=== PATIENT | female | born 1995 | race Caucasian/White ===

== ENCOUNTER 2018-06-16 18:35 | Emergency (ER) | payer OTHER ==
[2018-06-16 18:45] VITALS: BP 135/89
--- NOTE | 2018-06-16 18:54 | EDPHY ---
H & P Stated Complaint: 'Rolled' left ankle last night. Time Seen by Provider: 06/16/18 18:54 HPI/ROS: HPI CHIEF COMPLAINT: Left ankle swelling and pain. HISTORY OF PRESENT ILLNESS: 23-year-old female otherwise healthy no significant medical history presents emergency room left lateral ankle pain and swelling. Patient states that she rolled her ankle yesterday. She was intoxicated. She woke up today with increasing swelling, ecchymosis and pain. Mainly located left lateral ankle. Denies any other areas of injury. Past Medical History: No significant medical history Past Surgical History: No significant surgical history Social History: Denies drugs alcohol tobacco daily Family History: Noncontributory ROS REVIEW OF SYSTEMS: 10 Systems were reviewed and negative with the exception of the elements mentioned in the history of present illness. Exam Constitutional triage nursing summary reviewed, vital signs reviewed, awake/ alert. Eyes normal conjunctivae and sclera, EOMI, PERRLA. HENT normal inspection, atraumatic, moist mucus membranes, no epistaxis, neck supple/ no meningismus, no raccoon eyes. Respiratory clear to auscultation bilaterally, normal breath sounds, no respiratory distress, no wheezing. Cardiovascular rate normal, regular rhythm, no murmur, no edema, distal pulses normal. Gastrointestinal soft, non-tender, no rebound, no guarding, normal bowel sounds, no distension, no pulsatile mass. Genitourinary no CVA tenderness. Musculoskeletal left lower extremity: This is neurovascular intact with good distal pulse, good cap refill, ecchymosis and mild swelling to left lateral malleolus. Otherwise neurovascular intact good cap refill, good distal pulse. No evidence of compartment syndrome. Sensation intact. no midline vertebral tenderness, full range of motion, no calf swelling, no tenderness of extremities, no meningismus, good pulses, neurovascularly intact. Skin pink, warm, & dry, no rash, skin atraumatic. Neurologic awake, alert and oriented x 3, AAOx3, moves all 4 extremities equally, motor intact, sensory intact, CN II-XII intact, normal cerebellar, normal vision, normal speech. Psychiatric normal mood/affect. Heme/Lymph/Immune no lymphadenopathy. Differential Diagnosis: Includes but is not limited to in a particular order left ankle sprain ankle contusion, fracture Medical Decision Making: Plan for this patient x-ray left ankle. Re-evaluation: X-ray of the left ankle reviewed. No evidence of acute fracture. Soft tissue swelling noted. Recommend walking boot and crutches. Recommend ice, anti-inflammatory pain medicine. Keep leg elevated. Return precautions discussed. Return to the emergency room if there is worsening swelling, pain or questions or concerns. Patient should follow up with Orthopedics. Source: Patient - Personal History Current Tetanus Diphtheria and Acellular Pertussis (TDAP): Unsure - Medical/Surgical History Hx Asthma: No Hx Chronic Respiratory Disease: No Hx Diabetes: No Hx Cardiac Disease: No Hx Renal Disease: No Hx Cirrhosis: No Hx Alcoholism: No Hx HIV/AIDS: No Hx Splenectomy or Spleen Trauma: No Other PMH: Denies - Social History Smoking Status: Current some day smoker Constitutional: Initial Vital Signs Temperature (C) 36.6 C 06/16/18 18:40 Heart Rate 111 H 06/16/18 18:40 Respiratory Rate 16 06/16/18 18:40 Blood Pressure 135/89 H 06/16/18 18:40 O2 Sat (%) 98 06/16/18 18:40 O2 Delivery Mode Room Air Allergies/Adverse Reactions: No Known Allergies Allergy (Unverified 06/16/18 18:45) Home Medications: Medication Instructions Recorded NK [No Known Home Meds] 06/16/18 Departure - Departure Disposition: Home, Routine, Self-Care Clinical Impression: Ankle sprain Qualifiers: Encounter type: initial encounter Involved ligament of ankle: unspecified ligament Laterality: left Qualified Code(s): S93.402A - Sprain of unspecified ligament of left ankle, initial encounter Condition: Good Instructions: Ankle Sprain (ED) Additional Instructions: 1. Recommend anti-inflammatory pain medicine Tylenol and/or Motrin 2. Recommend walking boot. 3. Crutches 4. Follow up with Orthopedics. 5. Ice and elevation Referrals: Diya Irizarry PA [Primary Care Provider] - As per Instructions Sandor Jean MD [Medical Doctor] - As per Instructions
== END 2018-06-16 19:20 | disposition home or self-care (01) ==
DX: S93.402A Sprain of unspecified ligament of left ankle, initial encounter (principal); F17.200 Nicotine dependence, unspecified, uncomplicated; X50.9XXA Other and unspecified overexertion or strenuous movements or postures, initial encounter; Y92.9 Unspecified place or not applicable; Y93.9 Activity, unspecified; Y99.9 Unspecified external cause status
CPT/HCPCS: L4386

== ENCOUNTER → 2018-08-21 | Outpatient (CLI) | payer OTHER | LOC: BMCIMAGING 11:36 | PROVIDERS: ATTEND Physician Assistant | DX: N63.12 Unspecified lump in the right breast, upper inner quadrant (principal) ==

== ENCOUNTER 2019-02-04 18:51 | Emergency (ER) | payer OTHER ==
--- NOTE | 2019-02-04 20:14 | EDPHY ---
H & P Time Seen by Provider: 02/04/19 18:59 HPI/ROS: HPI Right ankle injury. 23-year-old female on foot with her boyfriend. This patient reports that she twisted/inverted her right ankle last night. She complains of isolated pain and swelling to the lateral aspect of the right ankle. She denies any foot pain. She is able to bear weight on the right ankle. She denies other injury or complaints. ROS: Constitutional: No fever, no chills. No weakness. Musculoskeletal: As above. Skin: No lacerations or abrasions. Neurological: No focal weakness or altered sensation. Past medical history: No significant past medical history. Social history: Here with boyfriend. Nonsmoker. Physical Exam: General Appearance: Alert, no distress. This patient is responding to questions appropriately and in full sentences. This patient appears well- hydrated and well-nourished. Head normocephalic atraumatic. Eyes: Pupils equal and round no pallor or injection. No lid edema, erythema or injection. Right foot and ankle exam: She has swelling with ecchymoses noted around the lateral malleolus. There is mild tenderness to palpation. The medial malleolus is nontender on palpation. The bony aspects of the foot are nontender on palpation. No tenderness on palpation of the proximal fibula. The right foot is neurovascularly intact. Neurological: Motor sensory function is grossly intact. Cranial nerves are normal. Antalgic gait favoring the right foot and ankle. Skin: Warm and dry, no rashes. Musculoskeletal: Neck is supple and nontender. Extremities are symmetrical except noted. All joints range without pain or impingement except noted. Psychiatric: No agitation. No depression. Database: EKG: Imaging: Right ankle x-ray series: Negative for fracture, subluxation, dislocation. Interpreted by me. Procedures: Emergency department course: Patient sent for x-rays from triage. I reviewed x-rays with her. She was fitted with an orthopedic boot. She will be provided crutches for weight- bearing as tolerated. She feels comfortable being discharged. I discussed ibuprofen dosing for pain medication. Orthopedic follow-up was reviewed. Return to emergency department precautions discussed. All of her questions were answered. She was discharged from the emergency department in good condition with her boyfriend. Differential Diagnosis: The differential diagnosis on this patient includes but is not limited to right ankle sprain. Fracture, subluxation, dislocation of the right ankle unlikely. This represents a partial list of diagnoses considered. These considerations are based on history, physical exam, past history, reassessment and diagnostic testing. Smoking Status: Never smoked Constitutional: Initial Vital Signs Temperature (C) 36.7 C 02/04/19 18:55 Heart Rate 101 H 02/04/19 18:55 Respiratory Rate 16 02/04/19 18:55 O2 Sat (%) 97 02/04/19 18:55 O2 Delivery Mode Room Air Allergies/Adverse Reactions: No Known Allergies Allergy (Unverified 06/16/18 18:45) Home Medications: Medication Instructions Recorded NK [No Known Home Meds] 06/16/18 Departure - Departure Disposition: Home, Routine, Self-Care Clinical Impression: Right ankle sprain Condition: Good Instructions: Ankle Sprain (ED) Additional Instructions: Read and follow provided instructions. Follow-up with Dr. Roberts of the Orthopedic service in 3-5 days for re-evaluation as discussed. Call his office on Tuesday for appointment time. Ibuprofen dosin mg every 6 hours with meals for the next 3 days only. Take only as needed for pain. Weight-bearing to right ankle while in orthopedic boot only as tolerated. Return to the emergency department for worsening pain, swelling, discoloration, loss of sensation or other serious concerns. Referrals: Joo Roberts MD [Medical Doctor] - As per Instructions
[2019-02-04 20:34] VITALS: BP 130/82
== END 2019-02-04 20:33 | disposition home or self-care (01) ==
DX: S93.401A Sprain of unspecified ligament of right ankle, initial encounter (principal); W18.49XA Other slipping, tripping and stumbling without falling, initial encounter; Y93.01 Activity, walking, marching and hiking
CPT/HCPCS: L4386